=== PATIENT | male | born 1970 | race Caucasian/White ===

== ENCOUNTER 2018-01-24 05:50 | Day surgery (SDC) | payer BC ==
[~2018-01-24] VITALS: Ht 185.4 cm; Wt 91.6 kg
--- NOTE | ~2018-01-24 | OP ---
PATIENT NAME: KELECHI SANCHEZ MEDICAL RECORD: [id number] :66 LOCATION:D[facility] ADMISSION DATE: SURGEON: HUGH JUAREZ MD DATE OF OPERATION: 01/24/2018 PREOPERATIVE DIAGNOSIS: Symptomatic left inguinal hernia. POSTOPERATIVE DIAGNOSES: 1. Symptomatic left indirect inguinal hernia. 2. Left cord lipoma. PROCEDURES: 1. Open left inguinal hernia repair with bilayered polypropylene preperitoneal mesh. 2. Excision of left cord lipoma. SURGEON: Hugh Juarez MD GLUE BONE CRUSHER: None. BLOOD LOSS: Minimal. ANESTHESIA: General. COMPLICATIONS: None. The risks, possible complications, and alternatives to the procedure were explained to the patient. He elects to proceed. Discussions specifically included, but was not limited to, bleeding requiring an emergency reoperation, infection, chronic pain, injury to the testicular artery or vein. OPERATIVE COURSE: The patient was conveyed to the operating room electively on 01/24/2018. General anesthesia was induced by the anesthesia staff. The abdomen and genitals were sterilely prepped and draped. A transverse incision was accomplished in the left groin. Sharp dissection was carried down through the skin and subcutaneous tissue as well as Petey fascia. The external oblique aponeurosis was then cleaned of overlying connective tissue. The external oblique aponeurosis was incised along the direction of its fibers. I bluntly dissected down through the internal oblique and transversus abdominis muscles. A preperitoneal pocket was fashioned bluntly. There was no femoral component. No direct component. An indirect hernia was reduced in its entirety. There was a cord lipoma. I clamped the cord lipoma highly. I then transected it distally with the electrocautery and this was sent as a specimen to pathology. I then cut 2 ovals out of a polypropylene mesh. The 2 ovals were sutured one on top of the other with a running #1 Surgidac. The mesh was placed in the preperitoneal space. Once I was satisfied with placement of the mesh, I then sutured the muscular layers together over the mesh incorporating a portion of the mesh with these sutures, which were 0 Vicryl sutures in a horizontal mattress fashion. The external oblique aponeurosis was closed with running #1 Vicryls. Petey fascia was approximated with interrupted 3-0 Vicryls. The subdermis was approximated OPERATIVE REPORT [id number] KELECHI SANCHEZ with interrupted 3-0 Vicryls. The skin was approximated with a running intracuticular 3-0 Vicryl. Benzoin and Steri-Strips were applied. The patient was then extubated and conveyed to the post-anesthesia care unit where he was in stable condition. I will see him in the office in 2-3 weeks. TRANSINT:[id number] Voice Confirmation ID: [id number] DOCUMENT ID: [id number] HUGH JUAREZ MD at 1645 CC: KEON JACOBSON [id number] DICTATION DATE: 01/24/18 1056 HARBOR PILOT: 01/24/18 1116 [facility] 01/24/18 [id number] [place] [address]
[2018-01-24 06:33] VITALS: BP 118/83; Ht 185.4 cm; Wt 91.6 kg
== END 2018-01-24 11:50 | disposition home or self-care (01) ==
LOC: D.OPS 05:50 → D.PAN 08:00 → D.OPS 11:15
DX: K40.90 Unilateral inguinal hernia, without obstruction or gangrene, not specified as recurrent (principal); D17.6 Benign lipomatous neoplasm of spermatic cord; Z01.812 Encounter for preprocedural laboratory examination

== ENCOUNTER 2018-02-24 10:32 | Observation (INO) | payer BC ==
[~2018-02-24] VITALS: Ht 185.4 cm; Wt 90.9 kg
[2018-02-24] VITALS (7 sets, daily range): BP systolic 107–135; BP diastolic 70–90; Ht 185.4 cm; Wt 90.9 kg
--- NOTE | ~2018-02-24 | OP ---
PATIENT NAME: KELECHI SANCHEZ MEDICAL RECORD: [id number] :66 LOCATION:D.M2 D.2119 ADMISSION DATE:02/24/18 SURGEON: VARSHA FRANK MD DATE OF OPERATION: 02/24/2018 PROCEDURES: 1. PTCA stent LAD. 2. Left heart catheterization. 3. Selective coronary angiography. 4. Left ventriculogram. INDICATION: Non-Q-wave myocardial infarction. PROCEDURE PERFORMED: After informed consent was obtained and after a detailed description of the risks, benefits as well as alternative therapies, the patient elected to proceed with angiogram and angioplasty. The right radial area was prepped and draped in normal sterile fashion. Right radial artery was cannulated via modified Seldinger technique with placement of 6-Syriac sheath. All catheters exchanged through this sheath. FINDINGS: The left ventriculogram was performed in standard 30-degree SANCHEZ view, reveals good cardiac wall motion throughout all segments. Overall ejection fraction estimated at 60%. SELECTIVE CORONARY ANGIOGRAPHY: 1. Left main is with no significant angiographic disease. 2. Left anterior descending has a 99% stenosis with clot in the mid vessel. 3. Left circumflex has moderate irregularities, but no flow-limiting stenosis. 4. Right coronary has moderate irregularities, but no flow-limiting stenosis. PTCA STENT OF THE LAD: The stent used was 2.25 x 15 mm Maurilio. Result was 0% residual stenosis. OVERALL IMPRESSION: Successful percutaneous transluminal coronary angioplasty stent of the left anterior descending going from 99% initial stenosis with clot to 0% residual stenosis. TRANSINT:[id number] Voice Confirmation ID: [id number] DOCUMENT ID: [id number] VARSHA FRANK MD at 1925 CC: [id number] DICTATION DATE: 02/24/18 1627 MANAGER TERMINAL: 02/24/18 1746 [facility] 02/25/18 [id number] [place] [address]
--- NOTE | ~2018-02-24 | DS ---
PATIENT:KELECHI SANCHEZ :66 MEDICAL RECORD: [id number] DISCHARGE SUMMARY ADMISSION DATE: 02/24/18 DISCHARGE DATE: 02/25/18 DISCHARGE DIAGNOSES: 1. Acute anterior myocardial infarction, non-Q-wave. 2. Coronary artery disease. 3. PTCA and stent of LAD this admission. 4. Hyperlipidemia. HOSPITAL COURSE: Mr. Sanchez presented with an acute coronary syndrome, non-Q-wave myocardial infarction, found to have critical disease of the LAD, underwent successful PTCA and stent of the LAD, was discharged home with the addition of aspirin, Plavix, Pravachol to his medical regimen. No beta-ebony was undertaken secondary to resting bradycardia. He will follow up with [facility] in 1 month. TRANSINT:[id number] Voice Confirmation ID: [id number] DOCUMENT ID: [id number] VARSHA FRANK MD at 1925 CC: [id number] DICTATION DATE: 02/25/18 0857 NAIL MAKER: 02/25/18 0906 DIS IN 02/25/18 [id number] [place] [address]
--- NOTE | ~2018-02-24 | HEMODYNAMI ---
PATIENT:KELECHI SANCHEZ MEDICAL RECORD: [id number] : 66 LOCATION:[facility].E10- ADMISSION DATE: 02/24/18 Generatedon:02/24/201816:41 Patient name: KELECHI SANCHEZ Patient #: [id number] SN: : 1970 Date of study: 02/24/2018 Page: Of Hemodynamic Procedure Report Patient Data Patient Demographics Procedure consent was obtained First Name: KELECHI Gender: Male Last Name: DANIEL : 1970 Middle Initial: N Age: 47 year(s) Patient #: [id number] Race: Unknown Additional ID: [id number] Contact details Address: [address] [place] [address] State: [place] City: [facility] Zip code: [address] Past Medical History Allergies: No known allergies Admission Admission Data Admission Date: 02/24/2018 Admission Time: 12:55 Room #: DE10 Procedure Procedure Types Cath Procedure Diagnostic Procedure LHC LHC w/Coronaries PCI Procedure Coronary Stent Coronary Stent Initial Procedure Description Procedure Date Procedure Date: 02/24/2018 Procedure Start Time: 16:10 Procedure End Time: 16:41 Procedure Staff Name Function Alfonso Winston MD Performing Physician Marie Matt RT Monitor Casper Wood RN Nurse Wendy Garsia RT Scrub Procedure Data Cath Procedure Fluoroscopy Diagnostic fluoroscopy Total fluoroscopy Time: 3.8 time: 3.8 min min Diagnostic fluoroscopy Total fluoroscopy dose: 768 dose: 768 mGy mGy Contrast Material Contrast Material Type Amount (ml) Isovue 300 93 Entry Location Entry Primary Successful Side Size Upsize Upsize Entry Closure Ferrer ccessful Closure Location (Fr) 1 (Fr) 2 (Fr) Remarks Device Remarks Radial Right 6 Fr Mechanical artery Short Compression Estimated blood loss: 10 ml Diagnostic catheters Device Type Used For End Catheter Placement DIAGNOSTIC [place] 110cm 5 LV Angiography Fr catheter ([id number]) DIAGNOSTIC [place] 110cm 5 Left Coronary Fr catheter ([id number]) Angiography DIAGNOSTIC [place] 110cm 5 Right Coronary Fr catheter (104804) Angiography DIAGNOSTIC AR2 MOD 5 Fr Right Coronary catheter ([id number]) Angiography Procedure Complications No complications Procedure Medications Medication Administration Route Dosage 0.9% NaCl I.V. 100 ml/hr Oxygen etCO2 Nasal cannula 2 l/min Heparin Flush Bag added to field 2 bags (1000units/500ml NS) Lidocaine 2% added to field 20 Radial Cocktail added to field 1 syringe (Verapomil 2mg/Nitro 400mcg/Heparin 1500units) Versed I.V. 2 mg Fentanyl I.V. 100 mcg Radial Cocktail I.A. 1 syringe (Verapomil 2mg/Nitro 400mcg/Heparin 1500units) Heparin Bolus I.V. 5000 units Integrilin (Bolus I.V. 8.5 ml 2mg/ml) Integrilin (Bolus wasted 1.5 ml 2mg/ml) Hemodynamics Rest Heart Rate: 75 (bpm) Snapshots Pre Cath Intra NCS Post Cath Vital Signs Time Heart Resp SPO2 etCO2 NIBP (mmHg) Rhythm Pain Sedation Rate (ipm) (%) (mmHg) Status Level (bpm) 15:59:43 75 12 96 0 129/82(101) NSR 0 (11) 10(A) , No pain 16:03:53 86 13 94 0 125/85(98) NSR 0 (11) 10(A) , No pain 16:08:02 71 14 96 41.4 126/80(96) NSR 0 (11) 10(A) , No pain 16:12:14 67 14 98 38.4 118/77(88) NSR 0 (11) 9(A) , No pain 16:16:28 67 15 96 36.9 106/57(95) NSR 0 (11) 9(A) , No pain 16:20:34 63 11 97 38.4 112/70(84) NSR 0 (11) 10(A) , No pain 16:24:44 62 11 97 39.9 117/69(85) NSR 0 (11) 10(A) , No pain Medications Time Medication Route Dose Verified Delivered Reason Not es Effectiveness by by 16:01:36 0.9% NaCl I.V. 100 Casper Casper Per physician ml/hr Nina Wood RN RN 16:01:46 Oxygen etCO2 2 l/min Casper Casper Per physician Nasal Nina Wood cannula RN RN 16:01:56 Heparin Flush added 2 bags Casper Casper used for Bag to Nina Wood procedure (1000units/500ml field RN RN NS) 16:02:06 Lidocaine 2% added 20ml Casper Casper for local to vial Lorigan Nina anesthetic field RN RN 16:02:17 Radial Cocktail added 1 Casper Casper used for (Verapomil to syringe Nina Wood procedure 2mg/Nitro field RN RN 400mcg/Heparin 1500units) 16:04:37 Versed I.V. 2 mg Casper Casper for sedation Nina Wood RN RN 16:04:45 Fentanyl I.V. 100 mcg Casper Casper for sedation Nina Wood RN RN 16:12:29 Radial Cocktail I.A. 1 Casper Alfonso for (Verapomil syringe Nina Tauth MD vasodilation 2mg/Nitro RN 400mcg/Heparin 1500units) 16:19:13 Heparin Bolus I.V. 5000 Casper Casper for units Nina Wood anticoagulation RN RN 16:19:30 Integrilin I.V. 8.5 ml Casper Casper for (Bolus 2mg/ml) Nina Wood antiplatelet RN RN therapy 16:19:42 Integrilin wasted 1.5 ml Casper Casper to sharp's (Bolus 2mg/ml) Nina Wood RN drink waiter Log Time Note 15:43:03 Time tracking: Regular hours (M-F 7:00 - 5:00) 15:43:07 Plan of Care:Hemodynamics will remain stable., Cardiac rhythm will remain stable., Comfort level will be maintained., Respiratory function will remain adequate., Patient/ family verbilizes understanding of procedure., Procedure tolerated without complication., Recovers from procedure without complications.. 15:43:46 Marie Counts RT(R) sent for patient. Start room use. 15:58:19 Patient received from ED to CCL 2 Alert and oriented. Tansferred to table in Supine position. 15:58:20 Warm blankets applied, and ross hugger turned on for patient comfort. 15:58:21 Correct patient and procedure confirmed by team. 15:58:22 Signed procedure consent form obtained from patient. 15:58:23 ECG and BP/O2 sat monitors applied to patient. 15:58:24 Full Disclosure recording started 15:58:41 Vital chart was started 15:58:45 Rhythm: sinus rhythm 15:58:58 H&P Date Dictated: 02/24/2018 ER History on chart., New H&P dictated by physician.. 15:58:59 Pre-procedure instructions explained to patient. 15:59:00 Pre-op teaching completed and patient verbalized understanding. 15:59:01 Family in waiting room. 15:59:04 Patient NPO since Midnight. 15:59:09 Patient allergic to No known allergies 15:59:11 Is the patient allergic to Iodine/contrast media? No. 15:59:15 Is patient on blood thinner?Yes 15:59:18 ACC The patient was administered the following blood thiners within the last 24 hours: ACCPlavix 15:59:23 Patient diabetic? No. 15:59:28 Previous problem with sedation/anesthesia? No ? 15:59:30 Snore? Yes 15:59:32 Sleep apnea? No 15:59:33 Deviated septum? No 15:59:34 Opens mouth fully? Yes 15:59:35 Sticks out tongue? Yes 15:59:37 Airway obstruction? No ? 15:59:38 Dentures? No ? 15:59:41 Pre procedure: right dorsailis pedis pulse 2+ Normal; easily identifiable; not easily obliterated 15:59:42 Modified Davian's test Ulnar < 7 seconds 15:59:44 Patient pain scale 0/10 ?. 16:01:36 0.9% NaCl 100 ml/hr I.V. was administered by Casper Wood RN; Per physician; 16:01:46 Oxygen 2 l/min etCO2 Nasal cannula was administered by Casper Wood RN; Per physician; 16:01:56 Heparin Flush Bag (1000units/500ml NS) 2 bags added to field was administered by Casper Wood RN; used for procedure; 16:02:06 Lidocaine 2% 20ml vial added to field was administered by Casper Wood RN; for local anesthetic; 16:02:07 IV patent on arrival in left forearm with 0.9% NaCl at [facility]. 16:02:14 Lab results completed and on chart. 16:02:17 Radial Cocktail (Verapomil 2mg/Nitro 400mcg/Heparin 1500units) 1 syringe added to field was administered by Casper Wood RN; used for procedure; 16:02:18 Right Radial & Right Groin area was prepped with chlora-prep and draped in sterile fashion 16:02:19 Alarms reviewed by R. N. 16:02:19 Sharps counted by scrub and verified by R.N. 16:02:22 Use device set Radial Dx or PCI 16:02:23 ACIST Syringe (24038) opened to sterile field. 16:02:24 Medline Cath Pack ([id number]) opened to sterile field. 16:02:24 Bag Decanter (2002S) opened to sterile field. 16:02:25 DIAGNOSTIC WIRE .035 260cm J wire (892250) opened to sterile field. 16:02:26 ACIST Hand Control (01447) opened to sterile field. 16:02:26 ACIST Manifold (64182) opened to sterile field. 16:02:26 Tegaderm 4 x 4 (1626W) opened to sterile field. 16:02:27 MBrace Wrist Support ([id number]) opened to sterile field. 16:02:28 SHEATH 6FR Slender ([id number]) opened to sterile field. 16:02:41 Baseline sample Acquired. 16:03:26 Final Timeout: patient, procedure, and site verified with staff and physician. All members of the team are in agreement. 16:03:28 Right Radial site verified by team. 16:03:31 Physical assessment completed. ASA score P 2 - A patient with mild systemic disease as per Alfonso Winston MD. 16:03:33 Sedation plan: IV Moderate Sedation Medication:Versed, Fentanyl 16:04:37 Versed 2 mg I.V. was administered by Casper Wood RN; for sedation; 16:04:45 Fentanyl 100 mcg I.V. was administered by Casper Wood RN; for sedation; 16:08:27 Zero performed for pressure channel P1 16:10:39 Procedure started. 16:10:46 Local anesthetic to right radial artery with Lidocaine 2% by Alfonso Winston MD.INITIAL ACCESS ONLY 16:11:16 A 6 Fr Short sheath was inserted into the Right Radial artery 16:12:29 Radial Cocktail (Verapomil 2mg/Nitro 400mcg/Heparin 1500units) 1 syringe I.A. was administered by Alfonso Winston MD; for vasodilation; 16:12:38 A DIAGNOSTIC [place] 110cm 5 Fr catheter (508342) was advanced over the wire and used for LV Angiography. 16:12:57 LV gram done using SANCHEZ 16:13:03 Injector settings: Ml/sec: 5, Volume: 15, 16:13:13 EF : 60 % 16:13:24 A DIAGNOSTIC [place] 110cm 5 Fr catheter (627784) was advanced over the wire and used for Left Coronary Angiography. 16:14:22 A DIAGNOSTIC [place] 110cm 5 Fr catheter (785177) was advanced over the wire and used for Right Coronary Angiography. unable to cannulate 16:14:35 Use device set HUSSEIN PCI 16:14:37 INFLATOR Merit BasixCompak (LF4435) opened to sterile field. 16:14:40 CHOICE PT Extra Support 182cm wire ([id number]) opened to sterile field. 16:14:42 GUIDE 6FR XBLAD 3.5 catheter ([id number]) opened to sterile field. 16:15:35 A DIAGNOSTIC AR2 MOD 5 Fr catheter ([id number]) was advanced over the wire and used for Right Coronary Angiography. 16:16:50 Catheter removed. 16:18:15 6 Fr XBLAD 3.5 guide catheter was inserted over the wire 16:18:37 CHOICE PT ES wire advanced. 16:19:13 Heparin Bolus 5000 units I.V. was administered by Casper Wood RN; for anticoagulation; 16:19:30 Integrilin (Bolus 2mg/ml) 8.5 ml I.V. was administered by Casper Wood RN; for antiplatelet therapy; 16:19:42 Integrilin (Bolus 2mg/ml) 1.5 ml wasted was administered by Casper Wood RN; to sharp's; 16:20:56 Place stent Inflation Number: 1 A ANURAG RX 2.25 x 15 stent ([id number]) was prepped and advanced across the Dist LAD. The stent was deployed at 13 EMA for 0:05 (min:sec). 16:22:05 Stent catheter was removed intact over wire. 16:22:06 Wire removed. 16:22:06 Guide catheter removed. 16:22:19 Sheath removed intact; hemostasis achieved with Mechanical Compression to the Right Radial artery. 16:22:22 Procedure ended.(Physican Out) 16:23:25 Fluoroscopy time 03.80 minutes. 16:: Flurop Dose total: 768 16:: Fluoroscopy dose: 768 mGy 16:23:39 Contrast amount:Isovue 300 93ml. 16:23:40 Sharps counted by scrub and verified by R.N. 16:23:42 Insertion/operative site no bleeding no hematoma. 16:24:00 Post right radial artery:stable, clean and dry 16:24:02 Post Procedure Pulses reassessed and unchanged 16:24:04 Post-procedure physical assessment completed. ASA score P 2 - A patient with mild systemic disease as per Alfonso Winston MD. 16:24:06 Post procedure rhythm: unchanged. 16:24:08 Estimated blood loss: 10 ml 16:24:10 Post procedure instruction explained to patient.Patient verbalizes understanding. 16:24:10 Patient needs reinforcement of post procedure teaching. 16:24:15 Procedure type changed to Cath procedure, Diagnostic procedure, LHC, LHC w/Coronaries, PCI procedure, Coronary Stent, Coronary Stent Initial 16:24:19 Procedure Complication : No complications 16:24:21 See physician's report for complete and final results. 16:24:34 TR BAND Standard ([id number]) opened to sterile field. 16:25:25 TR band inflated with 10cc of air. 16:25:30 Procedure and supply charges have been captured, reviewed, submitted and are correct. 16:25:40 Vital chart was stopped 16:30:07 PATIENT TO GO TO 2118. WAITING ON ROOM TO BE CLEANED. 16::47 Report given to PCU. 16:41:09 Patient transfered to Pre/Post Procedure Room with Stretcher. 16:41:15 Procedure ended. 16:41:15 Full Disclosure recording stopped 16:41:19 End room use (Document Last) 16:41:19 End room use (Document Last) Intervention Summary Intervention Notes Time ActionType Lesion and Equipment Used Action# Pressure Duration Attributes 16:20:56 Place stent Dist LAD ANURAG RX 2.25 x 1 13 00:05 15 stent ([id number]) Device Usage Item Name Manufacture Quantity Catalog Number Hospital Part Current M inimal Lot# / Charge Number Stock Stock Serial# Code ACIST Syringe Acist 1 22206 843045 502824 364528 2 0 (96733) Medical Systems Inc Medline Cath Medline 1 [id number] 485080 70281 772017 5 Pack ([id number]) Bag Decanter Microtek 1 2001S 845210 16086 846085 5 (2001S) Medical Inc. DIAGNOSTIC St Jr 1 490794 714637 842025 454680 3 0 WIRE .035 260cm J wire (433969) ACIST Hand Acist 1 14356 228764 609204 189999 5 Control Medical (14820) Systems Inc ACIST Manifold Acist 1 85074 265773 423639 262686 5 (70122) Medical Systems Inc Tegaderm 4 x 4 3M 1 1626W 976922 643210 455380 5 (1626W) MBrace Wrist Advanced 1 140-0250-00 463758 94217 646589 5 Support Vascular ([id number]) Dynamics SHEATH 6FR Terumo 1 [id number] 514698 905113 947494 4 0 Slender ([id number]) DIAGNOSTIC Terumo 1 40-5013 290674 249734 932587 5 [place] 110cm 5 Fr catheter (740816) INFLATOR Merit Merit 1 ZT2310 751047 255498 694401 1 5 Diana (HC0837) CHOICE PT [place] 1 [id number] 940117 378433 314455 5 Extra Support Scientific 182cm wire ([id number]) GUIDE 6FR Cardinal 1 [id number] 474156 347420 111050 1 0 XBLAD 3.5 Health catheter (02298181) DIAGNOSTIC AR2 Cardinal 1 [id number] 886873 373067 175938 2 0 MOD 5 Fr Health catheter (271301F) ANURAG RX 2.25 x Medtronic 1 [id number] 069447 7376661 503094 5 [id number] 15 stent ([id number]) TR BAND Terumo 1 [id number] 569322 372569 524757 4 0 Standard ([id number]) Signature Audit [place] Stage Time Signature Unsigned Intra-Procedure 02/24/2018 Marie 4:41:34 PM Counts RT(R) Signatures Monitor : Marie Signature : Counts RT Date : Time : [address] [place] [address]
--- NOTE | ~2018-02-24 | MORECARE ---
CASE MANAGEMENT DISCHARGE SUMMARY PATIENT: KELECHI SANCHEZ UNIT: [id number] ADM DATE: 02/24/18 AGE: 47 : 66 SEX: M ROOM/BED: D.2119 AUTHOR: LACEY EDGE PHYSICIAN: REFERRING PHYSICIAN: VARSHA FRANK MD DATE OF SERVICE: 02/26/18 Discharge Plan Patient Name: KELECHI SANCHEZ [facility] [facility] 1970 Planned Disposition: Home Anticipated Discharge Date: 02/25/18 Discharge Date: 02/25/2018 Expected LOS: 1 Initial Reviewer: [email or web address] Initial Review Date: 02/26/2018 Generated: 02/26/18 8:55 am Patient Name: KELECHI SANCHEZ Page [id number] at 0755 All edits/amendments must be made on the electronic document DICTATION DATE: 02/26/18 0755 RADIOTELEGRAPH OPERATOR SERVICER: DIANNA 02/26/18 0755 RPT#: [id number] DC DATE:02/25/18 STATUS: DIS IN [facility] [address] [place] [address] END OF REPORT
[2018-02-24 11:04] LABS: ALBUMIN 3.9 g/dL (3.4-5.0); ALKALINE PHOSPHATASE 50 U/L (46-116); ALT (SGPT) 40 U/L (10-68); BILIRUBIN - TOTAL 0.55 mg/dL (0.2-1.3); CALC OSMOLALITY 280 mosm/kg (275-300); CALCIUM 8.8 mg/dL (8.5-10.1); CARBON DIOXIDE 32.7 mmol/L (21.0-32.0); CHLORIDE - SERUM 102 mmol/L (98-107); CREATININE - SERUM 1.2 mg/dL (0.6-1.3); GLUCOSE 113 mg/dL (74-106); PROTEIN - SERUM 7.8 g/dL (6.4-8.2); SODIUM 140 mmol/L (136-145); UREA NITROGEN 15 mg/dL (7-18); eGFR NON AFRICAN AMERICAN 68 mL/min (90-120)
[2018-02-24 11:10] LABS: BASOPHILS 0.2 % (0-2); HEMATOCRIT 46.3 % (42.0-54.0); HEMOGLOBIN 15.7 g/dL (13.5-17.5); IMMATURE GRANULOCYTES 0.7 % (0-5); LYMPHOCYTES 17.7 % (15-50); MCH 30.6 pg (26.0-34.0); MCHC 33.9 g/dL (31.0-37.0); MCV 90.3 fL (80.0-100.0); MEAN PLATELET VOLUME 10.3 fL (7.4-10.4); MONOCYTES 8.8 % (2-11); NEUTROPHILS 71.6 % (40-80); PLATELET COUNT 216 10x3/uL (130-400); RBC 5.13 10x6/uL (4.20-6.10); RDW 12.9 % (11.5-14.5); WBC 5.8 10x3/uL (4.8-10.8)
[2018-02-24 11:14] LABS: CKMB 1.5 U/L (0.0-3.6); CREATINE KINASE 162 UL (21-232); PRO BNP 72 pg/mL (0-125); TROPONIN-I 0.056 ng/mL (0.000-0.060)
[2018-02-24 14:10] LABS: CALC OSMOLALITY 274 mosm/kg (275-300); CALCIUM 8.9 mg/dL (8.5-10.1); CARBON DIOXIDE 31.7 mmol/L (21.0-32.0); CHLORIDE - SERUM 102 mmol/L (98-107); GLUCOSE 94 mg/dL (74-106); POTASSIUM - SERUM 4.3 mmol/L (3.5-5.1); SODIUM 137 mmol/L (136-145); UREA NITROGEN 15 mg/dL (7-18); eGFR NON AFRICAN AMERICAN 84 mL/min (90-120)
[2018-02-24 14:11] LABS: CKMB 6.4 U/L (0.0-3.6); CREATINE KINASE 177 UL (21-232)
[2018-02-24 14:14] LABS: TROPONIN-I 0.718 ng/mL (0.000-0.060)
[2018-02-24 20:32] LABS: CKMB 43.7 U/L (0.0-3.6)
[2018-02-24 20:34] LABS: CREATINE KINASE 396 UL (21-232)
[2018-02-25 03:30] VITALS: BP 98/63
[2018-02-25] MEDS ORDERED: PRAVACHOL20 MG PO (09:35)
[2018-02-25] MEDS ORDERED: ASPIRIN81 MG PO (09:36)
[2018-02-25] MEDS ORDERED: PLAVIX75 MG PO (09:36)
[2018-02-25 09:59] VITALS: BP 106/66
== END 2018-02-25 11:11 | disposition home or self-care (01) ==
LOC: D.ER 10:32 → D.EDHOLD 12:55 → D.M2 12:55 → OBSVTIME 12:56 → D.M2 16:44
PROVIDERS: Emergency Medicine; Internal Medicine Interventional Cardiology
DX: I21.4 Non-ST elevation (NSTEMI) myocardial infarction (principal); I25.10 Atherosclerotic heart disease of native coronary artery without angina pectoris; E78.5 Hyperlipidemia, unspecified

== ENCOUNTER → 2019-01-13 09:12 | Outpatient (CLI) | payer BC ==
[2018-02-24 17:23] VITALS: BMI 26.4
[~2019-01-13 09:12] MED LIST: ASPIRIN81 MG PO; PLAVIX75 MG PO; PRAVACHOL20 MG PO
--- NOTE | 2019-01-15 13:30 | ST ---
PATIENT:KELECHI SANCHEZ MEDICAL RECORD: [id number] SEX: M LOCATION:[facility] ORDER #: ADMISSION DATE: 01/13/19 AGE OF PATIENT: 48 REFERRING PHYSICIAN: INTERPRETING PHYSICIAN: VARSHA FRANK MD DATE OF SERVICE: 01/13/2019 PROCEDURE: Nuclear stress test. INDICATION: Angina and coronary artery disease, shortness of breath, hyperlipidemia. He was exercised on standard Gino protocol for 10 minutes achieving greater than 85% max target heart rate response with 33 mCi of sestamibi injected at peak stress, 11 mCi used previously for rest images. FINDINGS: Gated SPECT reveals mildly depressed ejection fraction of 45% with decreased thickening and brightening throughout the inferior segments. SPECT imaging: Cardiolite was used as myocardial perfusion agent. There was a fixed perfusion defect inferiorly compatible with previous inferior myocardial infarction. No evidence of reversibility. In fact, the defect does improve with stress. The remaining segments are with homogeneous uptake in rest and stress. OVERALL IMPRESSION: This is a minimally abnormal nuclear stress test with a fixed perfusion defect inferiorly. No evidence of reversible ischemia. Gated SPECT reveals a preserved, but mildly depressed ejection fraction of 45%. Continue medical management of the coronary artery disease and cardiac risk factors. TRANSINT:[id number] Voice Confirmation ID: [id number] DOCUMENT ID: [id number] VARSHA FRANK MD at 1330 CC: KEON JACOBSON [id number] DICTATION DATE: 01/13/19 1623 SENIOR LABORATORY TECHNICIAN: 01/14/19 0837 DEP CLI 01/13/19 [id number] [place] [address]
== END | disposition home or self-care (01) ==
LOC: D.HCCARDIO 09:12
PROVIDERS: ATTEND Internal Medicine Interventional Cardiology
DX: I25.119 Atherosclerotic heart disease of native coronary artery with unspecified angina pectoris (principal)